=== PATIENT | male | born 1950 | race Caucasian/White ===

== ENCOUNTER → 2017-10-25 | Outpatient (CLI) | payer MEDICARE ==
[2017-10-25 11:08] LABS: HCT 45.3 % (39.0-53.0); MCH 32.1 pg (25.0-35.0); MCHC 33.1 g/dL (31.0-37.0); Mean Platelet Volume 6.9; Platelet Count 250 k/uL (150-450); RBC 4.67 m/uL (4.30-5.90); WBC 4.5 k/uL (3.8-10.6)
[2017-10-25 11:18] LABS: Potassium 4.2 mmol/L (3.5-5.1)
[2017-10-25 12:15] LABS: Eosinophils # (M) 0.27 k/uL (0-0.7); Lymphocytes # (M) 2.07 k/uL (1.0-4.8); Monocytes # (M) 0.27 k/uL (0-1.0); Neutrophils # (M) 1.89 k/uL (1.3-7.7); Neutrophils % (M) 42 %; Nucleated Red Blood Cells 0 /100 WBC (0-0); Total Cells Counted 100
== END | disposition home or self-care (01) ==
LOC: LABPAT 10:24
PROVIDERS: ATTEND Orthopaedic Surgery
DX: Z01.812 Encounter for preprocedural laboratory examination (principal); Z01.818 Encounter for other preprocedural examination; M75.42 Impingement syndrome of left shoulder
CPT/HCPCS: 36415; 80051; 85027; 93005

== ENCOUNTER 2017-11-04 05:55 | Day surgery (SDC) | payer MEDICARE ==
[2017-10-26 09:47] VITALS: BMI 22.6
--- NOTE | 2017-11-03 12:41 | HP ---
HISTORY AND PHYSICAL Surgery is scheduled for 11/04/2017. Maximus Mcdonough is a 67-year-old patient seen with progressive left shoulder pain. Treatment options were discussed with him. He elected to proceed with arthroscopy. Consent was obtained. PAST MEDICAL HISTORY: His past medical history is noncontributory. PAST SURGICAL HISTORY: Shoulder surgery, total hip arthroplasty. DAILY MEDICATIONS: [place] as needed. ALLERGIES: None reported. SOCIAL HISTORY: Patient denies current tobacco use. PHYSICAL EVALUATION: Physical evaluation of the left shoulder: Flexion 120 degrees, abduction 110 degrees, external rotation is 50 degrees with pain and weakness. Tenderness is noted along the anterolateral acromion rotator cuff insertion site. Positive impingement sign at 80 degrees. Drop-arm sign is positive. Distal neurovascular exam is intact. Radiographs which were obtained of the left shoulder revealed a type 2 anterior acromion, cystic changes of the greater tuberosity. An MRI was obtained of the left shoulder revealing a rotator cuff tear as well as osteoarthritic changes. IMPRESSION: 1. Left shoulder impingement with rotator cuff tear. 2. Left shoulder osteoarthritis. PLAN: Left shoulder arthroscopy with subacromial decompression probable arthroscopic rotator cuff repair, possible Susan procedure and debridement. MMODL / IJN: [id number] /
[~2017-11-04 05:55] MED LIST: DEXAMETHASONE SOD PHOSPHATE 10 MG/ML 1 ML VIAL IV ONE; HYDROmorphone 0.5 MG/0.5 ML SYRINGE IVP PRN; LACTATED RINGERS 1,000 ML IV SCH; MIDAZOLAM 2 MG/2 ML VIAL IV PRN; MORPHINE SULFATE 4 MG/ML SYRINGE IV PRN; ONDANSETRON 4 MG/2 ML VIAL IVP ONE; ceFAZolin 1,000 MG in DEXTROSE/WATER 1 50ML.BAG IV ONE
[2017-11-04] MEDS ORDERED: LIDOCAINE 1% 20 ML VIAL (10MG/ML) FOR IV START INTRADERMA ONE (06:25)
[2017-11-04] MEDS ORDERED: MIDAZOLAM 2 MG/2 ML VIAL IV ONE (06:55)
[2017-11-04] MEDS ORDERED: fentaNYL (PF) 50 MCG/ML 2 ML AMP ONE (07:33)
[2017-11-04] MEDS ORDERED: LIDOCAINE 2%-EPI 1:100,000 20 ML VIAL ONE (07:33)
[2017-11-04] MEDS ORDERED: ROPIVACAINE 5 MG/ML 30 ML VIAL ONE (07:33)
[2017-11-04] MEDS ORDERED: PROPOFOL 10 MG/ML 20 ML VIAL IV ONE (07:33)
[2017-11-04] MEDS ORDERED: KETOROLAC 30 MG/ML 1 ML VIAL ONE (07:33)
[2017-11-04] MEDS ORDERED: MIDAZOLAM 2 MG/2 ML VIAL ONE (07:33)
[2017-11-04] MEDS ORDERED: SUCCINYLCHOLINE CHLORIDE 100 MG/5 ML SYR IV ONE (07:33)
[2017-11-04] MEDS ORDERED: LACTATED RINGERS 1,000 ML IV ONE (08:44)
[2017-11-04 09:49] VITALS: TEMP 97
--- NOTE | 2017-11-04 09:50 | P.OP ---
Date of Procedure: 11/04/17 Preoperative Diagnosis: Left shoulder impingement Postoperative Diagnosis: 1. Left shoulder rotator cuff tear 2. Left shoulder impingement 3. Left shoulder acromioclavicular joint osteoarthritis 4. Left shoulder partial long head biceps tendon tear 5. Left shoulder superficial labral tear Procedure(s) Performed: 1. Left shoulder arthroscopic rotator cuff repair 2. Left shoulder arthroscopic subacromial decompression 3. Left shoulder arthroscopic Susan procedure 4. Left shoulder arthroscopic biceps tenotomy 5. Left shoulder arthroscopic debridement labral tear Implants: 4-4.75 Arthrex swivel lock anchors Anesthesia: GETA, regional (Interscalene block) Surgeon: Rj Hardin Market Maker #1: Jerrod Dupont Estimated Blood Loss (ml): 10 Pathology: none sent Condition: stable Disposition: PACU Indications for Procedure: 67-year-old patient seen with progressive left shoulder pain. After treatment options were discussed, he elected to proceed with arthroscopy. Operative Findings: see description of procedure Description of Procedure: Patient underwent a shoulder block by department of anesthesia. The patient was then taken to the operative suite. The patient underwent a general anesthetic by the department of anesthesia. The patient was placed into a lateral position and secured. There was appropriate padding of the bony prominence. Left shoulder was then prepped and draped in normal sterile orthopedic fashion. We placed the extremity in 10 pounds of longitudinal traction. A posterior incision was now made for a posterior working portal site. The trocar and cannula were inserted into the glenohumeral joint. Arthroscopy was initiated. Spinal needle was now inserted anteriorly, to ascertain the anterior working portal site. An incision was now made in that area, a trocar was inserted followed by a probe. Was some superficial tearing of the superior labrum present. There was partial tearing biceps tendon. There was no obvious large rotator cuff tear visualized from glenohumeral side. I performed an arthroscopic biceps tenotomy. I debrided the superficial labral tear down to stable tissue. The residual labrum was probed and found to be stable. Instruments were now removed from the glenohumeral joint. Utilizing the posterior working portal site, the trocar and cannula were inserted into the subacromial space. Arthroscopy initiated. I made an incision 2 fingerbreadths lateral to the acromion. I introduced my trocar followed by my [employer]throCare ablator. I now began ablating thick subacromial bursal tissue, which exposed the undersurface of the anterior acromion. This was diminished subacromial space. There was a very prominent anterior acromion. A motorized bur was introduced and a subacromial decompression was performed. I also excised some osteophytes off the inferior aspect of the distal clavicle. The AC joint was visualized and noted to be fairly arthritic. Our motorized bur was introduced in the anterior portal site and a Susan procedure was performed without difficulty, decompressing the AC joint nicely. I turned my attention to the rotator cuff. There was a 2-2.5 cm tear distal supraspinatus with an intrasubstance component anteriorly. I debrided the margins down to stable tissue. I now repaired that intrasubstance tear with 2 simple interrupted sutures brought together very nicely. I now made an behavioral health care coordinator portal site off the lateral acromion. I introduced 2 medial anchors with 4 sutures each. I passed all 8 limbs of suture through good bites of rotator cuff tendon. We crisscrossed the sutures and introduced 2 lateral anchors was compressed the tendon along the footprint very nicely. The residual suture limbs were clipped. The repair was probed and found to be stable. I injected 1 mL UCT intra-articular. Instruments now removed from the portal sites. All portal sites were approximated with nylon suture. Sterile dressings were applied followed by a shoulder immobilizer. 4 Arthrex SwiveLock anchors were utilized as implants. Sae HEAD assisted with the procedure. The patient was awakened, transferred to a bed, and taken to recovery in stable condition.
[2017-11-04 10:01] VITALS: RESP 16
[2017-11-04 11:18] VITALS: BP 152/75; PULSE 59
--- NOTE | 2017-11-04 19:44 | P.ONQ ---
Anesthesiology Proc Note - PNB - Peripheral Nerve Block Performed Left Interscalene Single Time Out Performed: Yes Procedure Start Time: 06:55 Procedure Stop Time: 07:05 Indication: Acute Post-Operative Pain, Requested by physician Sedation Type: Sedate with meaningful contact maintained Preparation: Sterile Prep Position: Supine Needle Size: 50mm (2") Needle Gauge: 21 Technique: Ultrasound Injectate: 0.5% Ropivacaine (see comment for volume) (ropi .5% 30cc) Blood Aspirated: No Pain Paresthesia on Injection Noted: No Resistance on Injection: Normal Events: Uneventful and Well Tolerated
== END 2017-11-04 11:46 | disposition home or self-care (01) ==
LOC: OR 05:55
PROVIDERS: ATTEND Orthopaedic Surgery
DX: M75.102 Unspecified rotator cuff tear or rupture of left shoulder, not specified as traumatic (principal); M75.42 Impingement syndrome of left shoulder; M19.012 Primary osteoarthritis, left shoulder; S46.112A Strain of muscle, fascia and tendon of long head of biceps, left arm, initial encounter; S43.432A Superior glenoid labrum lesion of left shoulder, initial encounter; X58.XXXA Exposure to other specified factors, initial encounter; M25.712 Osteophyte, left shoulder
CPT/HCPCS: 64415; 29826; 29827; 29824; C1713 ×2; C1894; C1765; J2250; J1100; J2405; J3010; J1885; J0690; J2795; J0330; J2704